=== PATIENT | female | born 1945 | race Caucasian/White ===

== ENCOUNTER → 2018-12-28 | Outpatient (CLI) | payer OTHER ==
[~2018-12-28] VITALS: Ht 170.2 cm; Wt 68.0 kg
[~2018-12-28] MED LIST: ALLEGRA ALLERG180 MG PO; CALCIUM 600 +1 EAC1 PO; LIPITOR40 MG PO; OMEPRAZOLE20 M1 PO; UNICOMPLEX M TA1 TA1 PO; VITAMIN B-12500 MCG PO
[2018-12-28 10:48] VITALS: BP 153/99
--- NOTE | 2018-12-28 11:17 | NUR ---
Pain Clinic Assessment: 1. History of Osteoarthritis: BACK History of Rheumatoid Arthritis: Not Applicable 2. Height: 5 ft. 7 in. 170.2 cm. Weight: 150.0 lb. oz. 68.040 kg. Patient's BMI: 23.5 3. Vital Signs: BP: 153/99 Pulse: 86 Resp: 18 Temp: 02 Sat: 100 ECG Mon: 4. Pain Intensity: 0 5. Fall Risk: Dizziness: N Needs help standing or walking: N Fallen in the last 3 months: Y Fall risk comments: 6. Patient on Blood Thinner: 7. History of Hypertension: N 8. Opioid Therapy greater than 6 weeks: N Opiate Contract Signed: 9. Risk Assessment Tool Provided: 10. Functional Assessment Tool: 11. Recreational Drug Use: Never Drug Type: Tobacco Use: Current Every Day Smoker Tobacco Type: Cigarettes Amount or Packs/day: 1/2 How Many Years: 35 Alcohol Use: No Frequency: Quant:
--- NOTE | 2019-01-10 07:57 | P ---
[facility] [place] [address] PROCEDURE REPORT Name: TENNILLE IBARRA Room #: REG Dara Rosa#: [id number] Admission: 12/28/18 Attend Phys: Dilan Rodarte DO Discharge: Date of : 49 Report #: [id number] THIS REPORT FOR: //name// CC: MARTHA physician/PCP Dilan Rodarte DATE OF SERVICE: 12/28/2018 PROCEDURE NOTE DESCRIPTION OF PROCEDURE: L5-S1 left paramedian epidural steroid injection under fluoroscopic guidance. This is the first procedure of the first series that the patient is undergoing. After obtaining written consent, the patient was taken back to the fluoroscopy suite, placed in a prone position with pillow under the abdomen to decrease lumbar lordosis. The skin overlying the lumbosacral area was then prepped and draped in aseptic fashion. The L5-S1 vertebral interspace was then identified by AP fluoroscopy. The skin and subcutaneous tissue overlying the target site of injection was anesthetized with 3 mL 1% lidocaine. A 20-gauge 3-1/2-inch Tuohy needle was then advanced under fluoroscopic guidance towards the epidural space using a left paramedian approach. The epidural space was identified using loss of resistance to air technique. After negative aspiration for heme or cerebrospinal fluid, a total of 1 mL of Omnipaque was injected. A lumbar epidurogram was confirmed using both AP and lateral fluoroscopy. After negative aspiration for heme or cerebrospinal fluid, 5 mL of solution containing 2 mL 40 mg/mL, 80 mg total triamcinolone along with 3 mL lidocaine 1% was injected in increments. Contrast spread was noted posterior epidural space. The needle was then retracted approximately half way and needle tract flushed with 1 mL of 1% lidocaine. Needle was then removed. There were no apparent sensory or motor deficits in the lower extremity following the procedure. A sterile bandage was placed over the injection site. The heart rate, pulse, oximetry and blood pressure were continuously monitored after the procedure. There were no apparent complications. The patient tolerated the procedure well and was carefully escorted to the recovery room in stable condition. There were no apparent complications. After meeting discharge criteria, the patient was then discharged home. <ELECTRONICALLY SIGNED> By: Dilan Rodarte DO 01/10/19 [id number] Dilan Rodarte DO /nt
--- NOTE | 2019-01-10 07:57 | HPC ---
[facility] [address] [address] PAIN MANAGEMENT CONSULTATION Name: FREDTENNILLE Marva Room #: REG [facility] Shelley#: [id number] Admission: 12/28/18 Attend Phys: Dilan Rodarte DO Discharge: Date of : 49 Report #: [id number] THIS REPORT FOR: //name// CC: [facility] physician/PCP Dilan CAMP DATE OF SERVICE: 12/28/2018 REFERRING PHYSICIAN: CONRADO Araiza CHIEF COMPLAINT: Low back pain, left lower extremity pain and paresthesias. HISTORY OF PRESENT ILLNESS: As you know, the patient is a 73-year-old female who reports chronic right foot pain over 3 years status post surgery of the right foot. This appears to be a longstanding issue. She reports new onset of left foot pain with numbness and tingling that began 12/02/2018. She trialed [id number] conservative medication management. This did not improve overall pain. She has sought evaluation with nurse practitioner, Polina Velasquez, who referred the patient to our clinic with concern of lumbar radiculopathy. The patient indicates today her pain is intermittent, describes the pain as numbness and tingling. Places current symptoms at anywhere from 0-8/10 depending on activity. Average daily pain varies with activity. She has had no injury that led to symptoms. She states the pain is exacerbated with most activities, improves with nothing to date. She has been referred to our service to discuss the possibility of undergoing a lumbar epidural injection to address suspected lumbar radiculopathy. ALLERGIES: PENICILLIN, MORPHINE, ERYTHROMYCIN and SULFACETAMIDE. CURRENT MEDICATIONS: Multivitamin 1 tablet per day, calcium carbonate 1 tablet per day, cyanocobalamin 1 tab per day, fexofenadine 180 mg once a day, omeprazole 20 mg per day, atorvastatin 40 mg per day. PAST MEDICAL HISTORY: 1. Diverticular disease of the colon. 2. Breast cancer, stage 1. 3. Hypercholesterolemia. 4. Hypertension. 5. Gastroesophageal reflux disease. PAST SURGICAL HISTORY: 1. Left tube and oophorectomy, 1971. [facility] [address] [place] [address] PAIN MANAGEMENT CONSULTATION Name: TENNILLE IBARRA [id number] Admission: 12/28/18 Attend Phys: Dilan Rodarte DO Discharge: Date of : 49 Report #: [id number] 2. LEEP procedure of the cervix, 1996. 3. Lumpectomy of the left breast, 2007. 4. Left foot bunionectomy in 2005. 5. Right foot surgery. SOCIAL HISTORY: The patient denies alcohol or IV illicit drug use. She smokes half pack of tobacco per day, has done so for 35 years. She is currently employed as a front desk administrator medical professional. She is working, not receiving workmen's compensation or is trying to do some benefit. She is not in litigation in regards to her pain. She is accompanied by her present in room today. REVIEW OF SYSTEMS: Positive for wearing corrective eyewear, asthma, wheezing, gastroesophageal reflux disease, hypertension, numbness and tingling sensations. All other review of systems negative per 12-point review of systems other than those listed in history of present illness. Pain impact score 42/70 indicating severe interference of daily activities secondary to pain. PQRS: The patient has known arthritic changes of the lumbar spine. No rheumatoid arthritis. She is placing pain intensity anywhere from 0-8/10 depending on activity. She is not a fall risk, has not had a fall in the last 3 months. She is not on blood thinners. She is treated for hypertension. She is not on chronic opioid. She has a low opioid addiction potential. She is placing pain impact score at 41/70-42/70 indicating severe interference of daily activities secondary to pain. PHYSICAL EXAMINATION: VITAL SIGNS: Blood pressure 153/99, pulse is 86, respiratory rate 18 and unlabored. The patient is 100% on room air. Height 5 feet 7 inches tall, weight 150 pounds, and BMI calculated 23.5. GENERAL: Well-developed, well-nourished, well-hydrated 73-year-old female appearing stated age, placing current pain score at 0-8/10 depending on activity. HEENT: Normocephalic, atraumatic. Pupils equal, round, reactive to light. Extraocular muscles are intact. Sclerae nonicteric without injection. NEUROLOGIC: Cranial nerves 2-12 grossly intact. Speech fluent. The patient deemed a good historian. LUNGS: Clear, no wheeze, rhonchi or rales. CARDIOVASCULAR: Regular. No appreciable gallop, no rub. ABDOMEN: Soft, nontender, nondistended. EXTREMITIES: Show no clubbing, no cyanosis, and no edema. MUSCULOSKELETAL: Lower extremity strength appears symmetrical 5/5, intact to light touch from L1 through S2 dermatomes. Seated straight leg raising negative. Supine straight leg raising negative. ALIA'S test is negative. Modified Gaenslen's positive for axial low back pain. Ankle clonus negative. Babinski is negative. Gait and mildly antalgic favoring left lower extremity [facility] [address] [place] [address] PAIN MANAGEMENT CONSULTATION Name: TENNILLE IBARRA Room #: REG [facility]#: [id number] Admission: 12/28/18 Attend Phys: Dilan Rodarte DO Discharge: Date of : 49 Report #: [id number] over right. ASSESSMENT: 1. Chronic lumbar radiculopathy. 2. Lumbosacral spondylosis with radiculopathy. 3. Peripheral neuropathy. 4. Chronic intractable pain. PLAN: 1. The patient has been referred to our service to discuss treatment options for suspected lumbar radiculopathy. She does appear to be suffering from lumbar radicular symptoms based on the distribution and descriptors she uses in regards to pain. I am unable to elicit any seated straight leg raising or supine straight leg raising. This does not necessarily indicate that she does or does not have a lumbar radiculopathy, but it does indicate that her symptoms are more chronic and there does not appear to be a significant amount of neural foraminal tensioning. We discussed with the patient treatment options for lumbar radicular symptoms today. It does appear the patient has peripheral neuropathic pain after a surgery involving the right foot and this is contributing to the patient's discomfort. She has been referred to our service by her primary care team and [facility] to be evaluated for epidural injection. We also discussed other treatment options with the patient today. Following was discussed with the patient. We discussed physical therapy, stretching exercise, core strengthening as a treatment course. We discussed medication management utilizing neuropathic pain medications and a consistent nonsteroidal anti-inflammatory. We discussed the epidural injection for which the patient was referred to our clinic. We also discussed surgical options. After reviewing risks and benefits of all proposed treatment options, the patient chose to move forward with a lumbar epidural injection under fluoroscopic guidance. The patient has been advised risks and benefits of a lumbar epidural injection. These risks include but are not necessarily limited to bleeding, bruising, infection, worsening pain, no relief of pain, also risk of temporary or permanent muscle weakness, temporary or permanent nerve damage, possible paralysis, post-dural puncture headache and . The patient states she understood and wished to proceed. 2. No medication changes made at today's visit. The patient will continue current medical therapy as previously prescribed. 3. We will see the patient back in followup visit in approximately 30 days. At that time, review the efficacy of today's epidural injection and determine if next in a series of epidural injections might be recommended. 4. We wish to thank nurse practitioner, Polina Velasquez, for the opportunity to see the patient in consultation. We will keep you [place]ised [place] [address] PAIN MANAGEMENT CONSULTATION Name: TENNILLE IBARRA Room #: REG [facility].#: [id number] Admission: 12/28/18 Attend Phys: Dilan Rodarte DO Discharge: Date of : 49 Report #: [id number] treatment as we address suspected lumbar radiculopathy. Again, we wish to thank you for the opportunity to see the patient in consultation. <ELECTRONICALLY SIGNED> By: Dilan Rodarte DO 01/10/19 [id number] Dilan Rodarte DO /nt
== END | disposition home or self-care (01) ==
LOC: PAIN 07:02
DX: M54.5 Low back pain (principal); M47.27 Other spondylosis with radiculopathy, lumbosacral region; G89.29 Other chronic pain; G62.9 Polyneuropathy, unspecified; I10 Essential (primary) hypertension; E78.00 Pure hypercholesterolemia, unspecified; K21.9 Gastro-esophageal reflux disease without esophagitis; F17.210 Nicotine dependence, cigarettes, uncomplicated; Z98.890 Other specified postprocedural states; Z79.899 Other long term (current) drug therapy; Z87.19 Personal history of other diseases of the digestive system; Z88.0 Allergy status to penicillin; Z88.2 Allergy status to sulfonamides; Z88.8 Allergy status to other drugs, medicaments and biological substances